=== PATIENT | male | born 1950 | race Caucasian/White ===

== ENCOUNTER 2018-03-18 06:43 | Day surgery (SDC) | payer BC, MEDICARE ==
[2018-03-16 13:33] LABS: BASOPHILS % (AUTO) 0.3 % (0-1); EOSINOPHILS # (AUTO) 0.3 X10'3 (0-0.9); EOSINOPHILS % (AUTO) 3.3 % (0-6); HEMATOCRIT 39.5 % (42.0-52.0); HEMOGLOBIN 13.7 g/dl (14.0-17.9); LYMPHOCYTES # (AUTO) 3.8 X10'3 (1.1-4.8); LYMPHOCYTES % (AUTO) 39.4 % (21-51); MEAN CORPUSCULAR HEMOGLOBIN 33.9 PG (27.0-31.0); MEAN CORPUSCULAR HGB CONC 34.7 % (33.0-36.5); MEAN CORPUSCULAR VOLUME 97.9 FL (78-98); MEAN PLATELET VOLUME 7.6 FL (7.4-10.4); MONOCYTES # (AUTO) 0.9 X10'3 (0-0.9); MONOCYTES % (AUTO) 9.1 % (2-12); NEUTROPHILS # (AUTO) 4.6 X10'3 (1.8-7.7); NEUTROPHILS % (AUTO) 47.9 % (42-75); PLATELET COUNT 175 X10'3 (140-440); RED BLOOD COUNT 4.03 X10'6 (4.70-6.10); RED CELL DISTRIBUTION WIDTH 13.8 % (11.5-14.5); WHITE BLOOD COUNT 9.7 X10'3 (4.5-11.0)
[2018-03-16 13:42] LABS: PARTIAL THROMBOPLASTIN TIME 23 SECONDS (22-32); PROTHROMBIN TIME 9.9 SECONDS (9.0-12.0)
[2018-03-16 13:47] LABS: ALANINE AMINOTRANSFERASE 42 U/L (12-78); ALBUMIN 3.9 G/DL (3.4-5.0); ALKALINE PHOSPHATASE 64 IU/L (46-116); ANION GAP 9 (8-16); ASPARTATE AMINO TRANSFERASE 25 U/L (10-37); BILIRUBIN,TOTAL 0.3 MG/DL (0.1-1.0); BLOOD UREA NITROGEN 17 MG/DL (7-18); BUN/CREATININE RATIO 16.5 (5.4-32.0); CALCIUM 8.7 MG/DL (8.5-10.1); CHLORIDE 102 MMOL/L (99-107); CREATININE 1.03 MG/DL (0.60-1.10); GLUCOSE 91 MG/DL (70-104); POTASSIUM 3.8 MMOL/L (3.5-5.1); SODIUM 141 MMOL/L (135-145); TOTAL CARBON DIOXIDE 30.3 MMOL/L (24-32); TOTAL PROTEIN 7.8 G/DL (6.4-8.2); eGFR 72 ML/MIN
[2018-03-18] VITALS (11 sets, daily range): BP systolic 95–127; BP diastolic 44–79
[~2018-03-18] VITALS: Ht 182.9 cm; Wt 133.6 kg
[2018-03-18] MEDS ORDERED: nitroGLYCERIN 0.4mg SUBLingual tab SL PRN (07:00)
[2018-03-18] MEDS ORDERED: methylPREDNISolone sod succ 125mg/2ml vial IV ONE (07:00)
[2018-03-18] MEDS ORDERED: LORazepam 0.5 MG tablet PO PRN (07:00)
[2018-03-18] MEDS ORDERED: diphenhydrAMINE 25mg capsule PO PRN (07:00)
[2018-03-18] MEDS ORDERED: ESCI5TAB PO (07:22)
[2018-03-18] MEDS ORDERED: VITA400C21 PO (07:22)
[2018-03-18] MEDS ORDERED: PRIM50TA PO (07:22)
[2018-03-18] MEDS ORDERED: ASCO500C15 PO (07:22)
[2018-03-18] MEDS ORDERED: CHOL2000 PO (07:22)
[2018-03-18] MEDS ORDERED: LISI1TAB9 PO (07:22)
[2018-03-18] MEDS ORDERED: BUDE10.2 INH (07:22)
[2018-03-18] MEDS ORDERED: ASPI-611 PO (07:22)
[2018-03-18] MEDS ORDERED: ARIP10TA15 PO (07:22)
[2018-03-18] MEDS ORDERED: ROSU20TA PO (07:22)
[2018-03-18] MEDS: normal saline 1000ml 1,000 ML IV SCH ×2 (07:29→13:03)
[2018-03-18] MEDS ORDERED: midazolam 2 mg/2 ml injection ONE (09:15)
[2018-03-18] MEDS ORDERED: LIDOcaine 1% w/EPI 1:100,000 30ml vial (MDV) ONE (09:15)
[2018-03-18] MEDS ORDERED: fentaNYL/PF 50MCG/1 ML 2ML syringe ONE (09:15)
[2018-03-18] MEDS ORDERED: iohexol 350 MG/ML 50ML vial IV ONE (09:16)
[2018-03-18] MEDS ORDERED: heparin 1,000 UNITS/NS 500ml 500 ML ONE (09:16)
[2018-03-18] MEDS ORDERED: iohexol 350MG/ML 100ml bottle IV ONE (09:16)
[2018-03-18 11:56] LABS: ISTAT HGB ART 12.6 g/dl (14.0-18.0); ISTAT Hct ART 37 %PCV (42-52); ISTAT O2 SATURATION ARTERIAL 96 % (95-98); ISTAT SOURCE ART
[2018-03-18 11:56] LABS: ISTAT Hct MIX 37 %PCV (42-52); ISTAT O2 SATURATION MIX VENOUS 74 % (60-80); ISTAT SOURCE MIX
[2018-03-18] MEDS ORDERED: proCHLORperazine 10 MG/2 ml inj IV PRN (13:00)
[2018-03-18] MEDS ORDERED: OXAZEpam 15mg capsule PO PRN (13:00)
[2018-03-18] MEDS ORDERED: ondansetron/PF 4mg/2ml inj IV PRN (13:00)
[2018-03-18] MEDS ORDERED: HYDROcodone/acetaminophen 5mg/325mg tablet PO PRN (13:00)
[2018-03-18] MEDS ORDERED: HYDROcodone/acetaminophen 10/325mg tab PO PRN (13:00)
== END 2018-03-18 17:00 | disposition home or self-care (01) ==
LOC: SSTAY O 06:43
PROVIDERS: ATTEND Internal Medicine Cardiovascular Disease
DX: I25.10 Atherosclerotic heart disease of native coronary artery without angina pectoris (principal); I10 Essential (primary) hypertension; J44.9 Chronic obstructive pulmonary disease, unspecified; M16.0 Bilateral primary osteoarthritis of hip; E78.5 Hyperlipidemia, unspecified; Z87.891 Personal history of nicotine dependence; Z79.899 Other long term (current) drug therapy; E66.01 Morbid (severe) obesity due to excess calories; Z68.39 Body mass index [BMI] 39.0-39.9, adult
CPT/HCPCS: 36415; 71046; 80053; 82803; 85014; 85025; 85610; 85730; 93460; 99152; 99153; A6257; C1760; C1769; J1644; J2250; J2930; J3010; J3490; J7030; Q0163; Q9967; A4620

== ENCOUNTER 2023-02-04 17:30 | Emergency (ER) | payer BC, MEDICARE ==
[~2023-02-04] VITALS: Ht 182.9 cm; Wt 110.0 kg
[~2023-02-04 17:30] MED LIST: ARIP10TA15 PO; ASCO500C18 PO; ASPI-611 PO; BUDE10.2 INH; CHOL2000 PO; ESCI5TAB PO; LISI1TAB49 PO; PRIM50TA PO; ROSU20TA2 PO; VITA400C21 PO
[2023-02-04 18:32] VITALS: BP 134/64
[2023-02-04] MEDS ORDERED: CEPH-585 PO (19:38)
[2023-02-04] MEDS ORDERED: cephalexin 250mg capsule PO ONE (19:40)
[2023-02-04] MEDS ORDERED: LIDOcaine/epinephrine/tetracaine TOPICAL sol 3 ML syringe TOP ONE (19:40)
[2023-02-04] MEDS ORDERED: bacitracin 15gm ointment TP ONE (19:40)
[2023-02-04] MEDS ORDERED: TETanus/Pertussis (Acell)/Diphther VAC/PF (Tdap-Adult) 0.5ml syringe IMVAC ONE (19:40)
== END 2023-02-04 21:01 | disposition home or self-care (01) ==
LOC: ER 17:31
DX: S51.011A Laceration without foreign body of right elbow, initial encounter (principal); Z79.899 Other long term (current) drug therapy; G89.29 Other chronic pain; F17.200 Nicotine dependence, unspecified, uncomplicated; I10 Essential (primary) hypertension; Z91.018 Allergy to other foods; J44.9 Chronic obstructive pulmonary disease, unspecified; M54.9 Dorsalgia, unspecified; W18.39XA Other fall on same level, initial encounter; Y93.89 Activity, other specified; Y92.89 Other specified places as the place of occurrence of the external cause; Y99.8 Other external cause status
CPT/HCPCS: 12002; 73080; 90471; 90715; 99284; A6223

== ENCOUNTER 2024-07-18 10:52 | Inpatient (IN) | payer MEDICARE, OTHER ==
[2024-07-18] VITALS (11 sets, daily range): PULSE 81–106; RESP 15–20; O2SAT 88–100
[~2024-07-18] VITALS: Ht 182.9 cm; Wt 121.0 kg
[2024-07-18] MEDS: methylPREDNISolone sod succ 125mg/2ml vial IV ONE (11:19)
[2024-07-18] MEDS: magnesium sulf-water 2g/50mL 50 ML IV ONE (11:19)
[2024-07-18 11:24] LABS: ABG BASE EXCESS 0.8 mmol/L (-2.0-3.0); ABG HCO3 27.1 mmol/L (21.0-28.0); ABG OXYGEN SATURATION 99.3 % (94.0-98.0); ABG PCO2 (T) 49.8 mmHg (35.0-48.0); ABG PH (T) 7.351 (7.350-7.450); ABG PO2 (T) 297.6 mmHg (83.0-108.0); ALLEN'S TEST POSITIVE; FCOHb 0.4 % (0.5-1.5); FHHb 0.7 % (0.0-5.0); FLOW 15 L/min; FMetHb 0.3 % (0.0-1.5); FO2Hb 98.6 % (94.0-98.0); MODE MASK - NRB; PATIENT TEMPERATURE 36.3; TOTAL HEMOGLOBIN 10.4 G/dl (13.5-17.5)
[2024-07-18] MEDS: normal saline 1000ml 1,000 ML IV ONE (11:25)
[2024-07-18 11:54] LABS: ALANINE AMINOTRANSFERASE 17 U/L (12-78); ALBUMIN/GLOBULIN RATIO 0.8 (1.1-1.5); ALKALINE PHOSPHATASE 58 IU/L (46-116); ANION GAP 5 (8-16); ASPARTATE AMINO TRANSFERASE 24 U/L (10-37); BILIRUBIN,TOTAL 0.7 MG/DL (0.1-1.0); BLOOD UREA NITROGEN 49 MG/DL (7-18); BUN/CREATININE RATIO 23.3 (10.0-20.0); CALCIUM 8.2 MG/DL (8.5-10.1); CHLORIDE 109 MMOL/L (99-107); SODIUM 144 MMOL/L (135-145); TOTAL CARBON DIOXIDE 30.4 MMOL/L (24-32); TOTAL PROTEIN 6.8 G/DL (6.4-8.2); eCRCL 33 ML/MIN; eGFR 31 ML/MIN
[2024-07-18 11:55] LABS: GLUCOSE 150 MG/DL (70-104)
[2024-07-18] MEDS: furosemide 10 MG/1 ML 10ml inj IV ONE (11:57)
[2024-07-18] MEDS ORDERED: magnesium sulf-water 4G/100mL 100 ML IV PRN (12:00)
[2024-07-18] MEDS ORDERED: potassium Cl 20 mEq SR tablet PO PRN ×2 (12:00)
[2024-07-18] MEDS ORDERED: ipratropium/albuterol 3ml nebule NEB PRN (12:00)
[2024-07-18] MEDS ORDERED: magnesium Cl slow-release 64mg tablet PO PRN (12:00)
[2024-07-18] MEDS ORDERED: acetaminophen 325mg tablet PO PRN (12:00)
[2024-07-18] MEDS ORDERED: potassium Cl 40MEQ/1/2NS 520ml 520 ML IV PRN (12:00)
[2024-07-18] MEDS ORDERED: magnesium sulf-water 2g/50mL 50 ML IV PRN (12:00)
[2024-07-18] MEDS: PERFLUTREN PROTEIN-A MICROSPHR (Optison) 0.22 MG/ML 3ML VIAL IV ONE (12:00)
[2024-07-18] MEDS ORDERED: ondansetron/PF 4mg/2ml inj IV PRN (12:00)
[2024-07-18 12:15] LABS: PRO BRAIN NATRIURETIC PEPTIDE 4265 PG/ML (0-450)
[2024-07-18 12:30] LABS: BASOPHILS % (AUTO) 0.2 % (0-1); EOSINOPHILS # (AUTO) 0.1 X10'3 (0-0.9); EOSINOPHILS % (AUTO) 0.6 % (0-6); HEMOGLOBIN 8.4 g/dl (14.0-17.9); LYMPHOCYTES # (AUTO) 1.2 X10'3 (1.1-4.8); LYMPHOCYTES % (AUTO) 14.1 % (21-51); MEAN CORPUSCULAR HEMOGLOBIN 34.4 PG (27.0-31.0); MEAN CORPUSCULAR HGB CONC 33.7 g/dL (33.0-36.5); MEAN PLATELET VOLUME 7.9 FL (7.4-10.4); MONOCYTES # (AUTO) 0.5 X10'3 (0-0.9); MONOCYTES % (AUTO) 5.3 % (2-12); NEUTROPHILS # (AUTO) 6.9 X10'3 (1.8-7.7); NEUTROPHILS % (AUTO) 79.8 % (42-75); PLATELET COUNT 172 X10'3 (140-440); RED BLOOD COUNT 2.45 X10'6 (4.70-6.10); RED CELL DISTRIBUTION WIDTH 15.4 % (11.5-14.5); WHITE BLOOD COUNT 8.6 X10'3 (4.5-11.0)
[2024-07-18 12:59] LABS: TOTAL CELLS COUNTED 100
[2024-07-18 13:01] LABS: PLATELET ESTIMATE NORMAL; STOMATOCYTES FEW; TEAR DROP CELLS FEW
[2024-07-18] MEDS: ipratropium/albuterol 3ml nebule NEB PRN (13:12)
[2024-07-18] MEDS ORDERED: BENZ1TAB79 (16:31)
[2024-07-18] MEDS ORDERED: LOSA100T58 PO (16:31)
[2024-07-18] MEDS ORDERED: HYDR25TA4 PO (16:31)
[2024-07-18] MEDS ORDERED: CELE-148 PO (16:31)
[2024-07-18] MEDS ORDERED: AMLO10TA13 PO (16:31)
[2024-07-18] MEDS ORDERED: QUET50TA24 PO (16:31)
[2024-07-18] MEDS ORDERED: UMEC1DIS INH (16:31)
[2024-07-18] MEDS ORDERED: ESCI20TA39 PO (16:31)
[2024-07-18] MEDS ORDERED: ALBUTEROL (16:31)
[2024-07-18] MEDS ORDERED: PRAM0.258 (16:31)
[2024-07-18] MEDS ORDERED: ARIP20TA63 PO (16:31)
[2024-07-18] MEDS ORDERED: PROP10TA10 PO ×2 (16:31→16:32)
[2024-07-18] MEDS ORDERED: OMEP40CA21 PO (16:32)
[2024-07-18] MEDS: amox tr/potassium clavulanate 500mg/125mg TAB PO SCH (17:47)
[2024-07-18] MEDS: ipratropium/albuterol 3ml nebule NEB SCH (19:35)
[2024-07-18] MEDS: K and/or MAG REPLACEMENT MC SCH (19:47)
[2024-07-18] MEDS: methylPREDNISolone sod succ/PF 40mg inj. IV SCH (19:55)
[2024-07-18] MEDS: docusate sod 100mg capsule PO SCH (19:56)
[2024-07-18] MEDS: heparin, porcine 5000 units/ml vial SQ SCH (19:56)
[2024-07-18 20:18] LABS: BILIRUBIN,URINE NEGATIVE (Neg); CLARITY,URINE CLEAR (Clear); COLOR,URINE YELLOW (Yellow); GLUCOSE, URINE NEGATIVE (Neg); KETONES,URINE NEGATIVE (Neg); LEUKOCYTE ESTERASE ,URINE NEGATIVE (Neg); NITRITES, URINE NEGATIVE (Neg); OCCULT BLOOD,URINE MODERATE (Neg); PH,URINE 5.5 (4.8-8.0); PROTEIN,URINE 100 mg/dl (Neg); UROBILINOGEN,URINE 0.2 E.U/dL (0.2-1.0)
[2024-07-18 20:19] LABS: UA COLLECTION TYPE CLN CATCH MIDSTREAM
[2024-07-18 20:25] LABS: BACTERIA,URINE FEW /HPF (Neg); RBC,URINE 20-50 /HPF (0-2); SQUAMOUS EPITHELIAL CELL,UR NONE SEEN /LPF (FEW); WBC,URINE 0-4 /HPF (0-4)
[2024-07-18 20:26] LABS: MUCUS STRANDS FEW /LPF (Neg)
[2024-07-19] VITALS (18 sets, daily range): BP systolic 126–138; BP diastolic 50–73; PULSE 63–94; RESP 13–20; TEMP 97.4–98.7; O2SAT 83–98
[2024-07-19] MEDS ORDERED: aripiprazole 10MG tablet PO PRN (01:15)
[2024-07-19 03:51] LABS: BASOPHILS % (AUTO) 0.1 % (0-1); EOSINOPHILS % (AUTO) 0.1 % (0-6); HEMATOCRIT 24.8 % (42.0-52.0); HEMOGLOBIN 8.2 g/dl (14.0-17.9); LYMPHOCYTES # (AUTO) 1.2 X10'3 (1.1-4.8); LYMPHOCYTES % (AUTO) 11.8 % (21-51); MEAN CORPUSCULAR HEMOGLOBIN 33.8 PG (27.0-31.0); MEAN CORPUSCULAR HGB CONC 33.1 g/dL (33.0-36.5); MEAN CORPUSCULAR VOLUME 102.2 FL (78-98); MEAN PLATELET VOLUME 8.1 FL (7.4-10.4); MONOCYTES # (AUTO) 0.3 X10'3 (0-0.9); MONOCYTES % (AUTO) 2.4 % (2-12); NEUTROPHILS # (AUTO) 8.9 X10'3 (1.8-7.7); NEUTROPHILS % (AUTO) 85.6 % (42-75); PLATELET COUNT 168 X10'3 (140-440); RED BLOOD COUNT 2.42 X10'6 (4.70-6.10); RED CELL DISTRIBUTION WIDTH 15.6 % (11.5-14.5); WHITE BLOOD COUNT 10.4 X10'3 (4.5-11.0)
[2024-07-19 03:59] LABS: ALBUMIN 2.8 G/DL (3.4-5.0); ANION GAP 4 (8-16); BLOOD UREA NITROGEN 54 MG/DL (7-18); CALCIUM 8.1 MG/DL (8.5-10.1); CHLORIDE 108 MMOL/L (99-107); CREATININE 2.08 MG/DL (0.60-1.10); MAGNESIUM 2.4 MG/DL (1.5-2.4); SODIUM 142 MMOL/L (135-145); TOTAL CARBON DIOXIDE 29.8 MMOL/L (24-32); eCRCL 34 ML/MIN; eGFR 31 ML/MIN
[2024-07-19] MEDS: QUEtiapine 25mg tablet PO STA (04:01)
[2024-07-19 04:02] LABS: GLUCOSE 165 MG/DL (70-104)
[2024-07-19] MEDS ORDERED: HYDROchlorothiazide 25mg tablet PO SCH (08:00)
[2024-07-19] MEDS: ESCITALOPRAM 10 mg tablet 10 MG TABLET PO SCH (09:27)
[2024-07-19] MEDS: propranolol 10mg tablet PO SCH (09:27)
[2024-07-19] MEDS: amLODIPine 5mg tablet PO SCH (09:28)
[2024-07-19] MEDS: losartan 50mg tablet PO SCH (09:28)
[2024-07-19] MEDS: pantoprazole 40mg Tablet.DR PO SCH (09:29)
[2024-07-19] MEDS: HYDROcodone/acetaminophen 5mg/325mg tablet PO PRN (12:06)
[2024-07-19 13:54] LABS: % IRON SATURATION 25 % (11-46); IRON 56 UG/DL (53-167); TOTAL IRON BINDING CAPACITY 224 UG/DL (259-388)
[2024-07-19] MEDS ORDERED: FEXO180T94 PO (17:52)
[2024-07-19] MEDS ORDERED: FERR-119 PO (17:52)
[2024-07-19] MEDS ORDERED: ASPI-1265 PO (17:52)
[2024-07-19] MEDS ORDERED: FLUT1BLS12 INH (17:52)
[2024-07-19] MEDS: QUEtiapine 25mg tablet PO SCH (20:55)
[2024-07-20] VITALS (19 sets, daily range): BP systolic 120–153; BP diastolic 58–95; PULSE 69–93; RESP 11–22; TEMP 97.8–98.8; O2SAT 81–98
[2024-07-20] MEDS: morphine 2 MG/ML inj. syringe IV PRN (04:12)
[2024-07-20 08:01] LABS: BASOPHILS % (AUTO) 0.1 % (0-1); EOSINOPHILS % (AUTO) 0 % (0-6); HEMATOCRIT 24.5 % (42.0-52.0); HEMOGLOBIN 8.2 g/dl (14.0-17.9); MEAN CORPUSCULAR HEMOGLOBIN 34.5 PG (27.0-31.0); MEAN CORPUSCULAR HGB CONC 33.3 g/dL (33.0-36.5); MEAN CORPUSCULAR VOLUME 103.6 FL (78-98); MEAN PLATELET VOLUME 8.1 FL (7.4-10.4); MONOCYTES # (AUTO) 0.5 X10'3 (0-0.9); NEUTROPHILS % (AUTO) 87.9 % (42-75); PLATELET COUNT 196 X10'3 (140-440); RED BLOOD COUNT 2.37 X10'6 (4.70-6.10); RED CELL DISTRIBUTION WIDTH 16.3 % (11.5-14.5); WHITE BLOOD COUNT 12.5 X10'3 (4.5-11.0)
[2024-07-20 08:30] LABS: ANION GAP 6 (8-16); BLOOD UREA NITROGEN 74 MG/DL (7-18); BUN/CREATININE RATIO 29.8 (10.0-20.0); CALCIUM 8.1 MG/DL (8.5-10.1); CHLORIDE 104 MMOL/L (99-107); CREATININE 2.48 MG/DL (0.60-1.10); MAGNESIUM 2.6 MG/DL (1.5-2.4); POTASSIUM 5.1 MMOL/L (3.5-5.1); SODIUM 141 MMOL/L (135-145); TOTAL CARBON DIOXIDE 31.4 MMOL/L (24-32); eCRCL 28 ML/MIN; eGFR 26 ML/MIN
[2024-07-20 08:34] LABS: GLUCOSE 150 MG/DL (70-104)
[2024-07-20] MEDS: furosemide 20 MG/2 ML vial IV ONE (17:07)
[2024-07-20] MEDS: dextrose 5%-water 1,000 ML IV SCH (17:08)
[2024-07-20] MEDS: carVEDilol 3.125mg tablet PO SCH (20:21)
[2024-07-21] VITALS (21 sets, daily range): BP systolic 114–150; BP diastolic 65–94; PULSE 64–103; RESP 10–22; TEMP 96.4–97.8; O2SAT 87–97
[2024-07-21 07:44] LABS: BASOPHILS % (AUTO) 0.1 % (0-1); EOSINOPHILS % (AUTO) 0 % (0-6); HEMATOCRIT 28.2 % (42.0-52.0); HEMOGLOBIN 9.3 g/dl (14.0-17.9); LYMPHOCYTES % (AUTO) 8.5 % (21-51); MEAN CORPUSCULAR HGB CONC 32.9 g/dL (33.0-36.5); MEAN CORPUSCULAR VOLUME 103.2 FL (78-98); MEAN PLATELET VOLUME 8.1 FL (7.4-10.4); MONOCYTES # (AUTO) 0.4 X10'3 (0-0.9); MONOCYTES % (AUTO) 3.4 % (2-12); NEUTROPHILS # (AUTO) 10.7 X10'3 (1.8-7.7); PLATELET COUNT 220 X10'3 (140-440); RED BLOOD COUNT 2.74 X10'6 (4.70-6.10); RED CELL DISTRIBUTION WIDTH 15.7 % (11.5-14.5); WHITE BLOOD COUNT 12.1 X10'3 (4.5-11.0)
[2024-07-21 07:48] LABS: D-DIMER 0.69 MG/L FEU (0-0.50)
[2024-07-21 07:51] LABS: ALBUMIN 3.1 G/DL (3.4-5.0); ANION GAP 4 (8-16); BLOOD UREA NITROGEN 79 MG/DL (7-18); BUN/CREATININE RATIO 38.9 (10.0-20.0); CALCIUM 8.3 MG/DL (8.5-10.1); CHLORIDE 101 MMOL/L (99-107); CREATININE 2.03 MG/DL (0.60-1.10); MAGNESIUM 2.6 MG/DL (1.5-2.4); POTASSIUM 4.9 MMOL/L (3.5-5.1); SODIUM 136 MMOL/L (135-145); TOTAL CARBON DIOXIDE 31.5 MMOL/L (24-32); eCRCL 35 ML/MIN; eGFR 32 ML/MIN
[2024-07-21 08:22] LABS: GLUCOSE 177 MG/DL (70-104)
[2024-07-21 10:05] LABS: TOTAL CELLS COUNTED 100
[2024-07-21 10:06] LABS: PLATELET ESTIMATE NORMAL; TEAR DROP CELLS FEW
[2024-07-21 15:57] LABS: TOTAL PROTEIN,URINE RANDOM 52.6 MG/DL
[2024-07-21] MEDS: furosemide 40mg/4ml inj IV ONE (22:45)
[2024-07-22] VITALS (11 sets, daily range): BP systolic 129–162; BP diastolic 65–79; PULSE 57–90; RESP 10–18; TEMP 97.6–98.2; O2SAT 93–99
[2024-07-22 07:30] LABS: BASOPHILS % (AUTO) 0 % (0-1); EOSINOPHILS % (AUTO) 0 % (0-6); HEMATOCRIT 29.6 % (42.0-52.0); HEMOGLOBIN 9.9 g/dl (14.0-17.9); LYMPHOCYTES % (AUTO) 8.2 % (21-51); MEAN CORPUSCULAR HEMOGLOBIN 34.3 PG (27.0-31.0); MEAN CORPUSCULAR HGB CONC 33.5 g/dL (33.0-36.5); MEAN CORPUSCULAR VOLUME 102.4 FL (78-98); MEAN PLATELET VOLUME 7.7 FL (7.4-10.4); MONOCYTES # (AUTO) 0.3 X10'3 (0-0.9); MONOCYTES % (AUTO) 2.7 % (2-12); NEUTROPHILS # (AUTO) 10.5 X10'3 (1.8-7.7); NEUTROPHILS % (AUTO) 89.1 % (42-75); PLATELET COUNT 239 X10'3 (140-440); RED BLOOD COUNT 2.89 X10'6 (4.70-6.10); RED CELL DISTRIBUTION WIDTH 15.4 % (11.5-14.5); WHITE BLOOD COUNT 11.8 X10'3 (4.5-11.0)
[2024-07-22 07:53] LABS: ALBUMIN 3.2 G/DL (3.4-5.0); ANION GAP 0 (8-16); BLOOD UREA NITROGEN 75 MG/DL (7-18); BUN/CREATININE RATIO 43.6 (10.0-20.0); CALCIUM 8.8 MG/DL (8.5-10.1); CHLORIDE 101 MMOL/L (99-107); CREATININE 1.72 MG/DL (0.60-1.10); MAGNESIUM 2.6 MG/DL (1.5-2.4); SODIUM 135 MMOL/L (135-145); TOTAL CARBON DIOXIDE 33.9 MMOL/L (24-32); eCRCL 41 ML/MIN; eGFR 39 ML/MIN
[2024-07-22] MEDS: furosemide 20 MG/2 ML vial IV SCH (08:06)
[2024-07-22 08:12] LABS: GLUCOSE 155 MG/DL (70-104)
[2024-07-22] MEDS: HYDROcodone/acetaminophen 10/325mg tab PO PRN (11:26)
[2024-07-22] MEDS ORDERED: PRED20TA PO (13:02)
[2024-07-22] MEDS ORDERED: FURO20TA4 PO (13:02)
[2024-07-22] MEDS ORDERED: CARV-164 PO (13:02)
[2024-07-22] MEDS ORDERED: AMOX-419 PO (13:02)
== END 2024-07-22 15:31 | disposition home health service (06) | DRG 280 ==
LOC: ER 10:52 → ED HOLD 12:04 → PCU 3S 07-19 07:28
PROVIDERS: ADMIT Internal Medicine; ATTEND Internal Medicine
PROC: 5A0935A Assistance with Respiratory Ventilation, Less than 24 Consecutive Hours, High Flow/Velocity Cannula (ICD-10-PCS; principal; 2024-07-19)
PROC: 5A09357 Assistance with Respiratory Ventilation, Less than 24 Consecutive Hours, Continuous Positive Airway Pressure (ICD-10-PCS; 2024-07-21)
DX: I13.0 Hypertensive heart and chronic kidney disease with heart failure and stage 1 through stage 4 chronic kidney disease, or unspecified chronic kidney disease (principal); I50.23 Acute on chronic systolic (congestive) heart failure; I21.A1 Myocardial infarction type 2; J96.20 Acute and chronic respiratory failure, unspecified whether with hypoxia or hypercapnia; N17.0 Acute kidney failure with tubular necrosis; J44.1 Chronic obstructive pulmonary disease with (acute) exacerbation; N18.9 Chronic kidney disease, unspecified; K21.9 Gastro-esophageal reflux disease without esophagitis; G89.29 Other chronic pain; M54.9 Dorsalgia, unspecified; F32.A Depression, unspecified; G25.81 Restless legs syndrome; I27.81 Cor pulmonale (chronic); D64.9 Anemia, unspecified; Z91.013 Allergy to seafood; Z79.82 Long term (current) use of aspirin; Z79.899 Other long term (current) drug therapy; I25.2 Old myocardial infarction
CPT/HCPCS: 36415; 36600; 71045; 76770; 80048; 80053; 81001; 82570; 82803; 83540; 83550; 83605; 83735; 83880; 83935; 84133; 84156; 84300; 84484; 84540; 85007; 85018; 85025; 85379; 87081; 93005; 93306; 94640; 94760; 96365; 96375; 97116; 97161; 97530; 99291; A4615; A4628; G0378; J1644; J1940; J2270; J2919; J7030; J7042; J7070